=== PATIENT | female | born 1995 | race Caucasian/White ===

== ENCOUNTER 2024-10-18 17:26 | Inpatient (IN) | payer OTHER ==
[~2024-10-18] VITALS: Ht 167.6 cm; Wt 80.7 kg
[2024-10-18] VITALS (9 sets, daily range): BP systolic 108–146; BP diastolic 62–82
[2024-10-18] MEDS ORDERED: RINGERS SOLUTION,LACTATED 1,000 ML IV SCH (17:30)
[2024-10-18] MEDS ORDERED: CHLORHEXIDINE GLUCONATE 120 ML BOTTLE TOP ONE (17:45)
[2024-10-18] MEDS ORDERED: ERYTHROMYCIN BASE OPHT 1GM EACH TUBE OP ONE (17:45)
[2024-10-18] MEDS ORDERED: IBUprofen 400 MG TABLET PO PRN (17:45)
[2024-10-18] MEDS ORDERED: OXYTOCIN 1,000 ML IV SCH (17:45)
[2024-10-18 18:31] LABS: HEMATOCRIT 38.9 % (36.0-45.00); HEMOGLOBIN 13.3 g/dL (12.0-15.00); MEAN CELL VOLUME 95.7 fL (80.00-100.00); MEAN CORPUSCULAR HEMOGLOBIN 32.8 pg (27.00-32.0); MEAN CORPUSCULAR HGB CONC 34.3 g/dl (32.0-36.0); PLATELET COUNT 219 K/uL (150-450); RED BLOOD COUNT 4.07 M/uL (4.00-6.00); RED CELL DISTRIBUTION WIDTH 13.4 % (11.5-14.5)
[2024-10-18] MEDS ORDERED: PRENATAL TABLE1 EAC4 PO (18:55)
[2024-10-18 18:58] LABS: INR < 0.93; PARTIAL THROMBOPLASTIN TIME 24.3 SECONDS (22.0-34.0)
[2024-10-18 19:04] LABS: ALBUMIN 2.7 gm/dL (3.4-5.0); BILIRUBIN TOTAL 0.25 mg/dL (0.3-1.2); CALCIUM 9.6 mg/dL (8.5-10.1); CREATININE SERUM 0.83 mg/dL (0.55-1.02); GFR 80.18; POTASSIUM 3.39 mEq/L (3.5-5.1); TOTAL PROTEIN 6.7 gm/dL (6.4-8.2)
[2024-10-19 08:02] VITALS: BP 103/67
[2024-10-19 08:25] LABS: HEMATOCRIT 33.6 % (36.0-45.00); HEMOGLOBIN 11.7 g/dL (12.0-15.00); MEAN CELL VOLUME 95.6 fL (80.00-100.00); MEAN CORPUSCULAR HEMOGLOBIN 33.1 pg (27.00-32.0); MEAN CORPUSCULAR HGB CONC 34.6 g/dl (32.0-36.0); PLATELET COUNT 174 K/uL (150-450); RED BLOOD COUNT 3.52 M/uL (4.00-6.00); RED CELL DISTRIBUTION WIDTH 13.2 % (11.5-14.5)
[2024-10-19] MEDS ORDERED: PNV,CALCIUM 72/IRON/FOLIC ACID 1 TAB TABLET PO SCH (09:00)
[2024-10-19 16:19] VITALS: BP 107/71
[2024-10-20 00:33] VITALS: BP 104/69
[2024-10-20 08:45] VITALS: BP 105/70
== END 2024-10-20 15:11 | disposition home or self-care (01) | DRG 807 ==
LOC: OB/GYN 17:26 → LDR 17:26 → OB/GYN 18:29
PROVIDERS: Obstetrics & Gynecology; ADMIT Specialist; ATTEND Specialist
PROC: 10E0XZZ Delivery of Products of Conception, External Approach (ICD-10-PCS; principal; 2024-10-18)
PROC: 4A1HXCZ Monitoring of Products of Conception, Cardiac Rate, External Approach (ICD-10-PCS; 2024-10-18)
DX: O80 Encounter for full-term uncomplicated delivery (principal); Z37.0 Single live birth; Z3A.38 38 weeks gestation of pregnancy; Z20.822 Contact with and (suspected) exposure to COVID-19